=== PATIENT | female | born 1995 | race African-American/Black ===

== ENCOUNTER 2023-05-18 11:36 | Outpatient (CLI) | payer OTHER | END 2023-05-18 11:37 | disposition home or self-care (01) | LOC: CSHLAB 11:36 | PROVIDERS: ATTEND Family Medicine | DX: Z53.9 Procedure and treatment not carried out, unspecified reason (principal) | CPT/HCPCS: 85014; 85018; 85049; 86780; 86850; 86900; 86901; 87340 ==

== ENCOUNTER 2023-05-20 09:46 | Inpatient (IN) | payer OTHER ==
[2023-05-18 13:19] LABS: Hematocrit 30.8 % (34.9-44.5); Hemoglobin 8.5 g/dL (12.0-15.5); Platelet Count 177 10x3/uL (150-450)
[2023-05-18 13:36] LABS: HBSAg Index 0.19 S/CO (0-0.99); Hep B Surf Ag Non-Reactive S/CO (NonReactive)
[2023-05-18 13:38] LABS: Syphilis Antibody Nonreactive (Nonreactive); Syphilis Antibody Index 0.06 S/CO (<1.00 Non-Reactive)
[2023-05-20] MEDS ORDERED: Famotidine/PF 20 mg/2ml Vial SLOW IVP PRN (10:28)
[2023-05-20] MEDS ORDERED: Tranexamic Acid 1,000 MG/10 ML VIAL IVP PRN (10:28)
[2023-05-20] MEDS ORDERED: Misoprostol 200 MCG TAB PR PRN (10:28)
[2023-05-20] MEDS ORDERED: Bicitra 30 ML UDCUP PO PRN (10:28)
[2023-05-20] MEDS ORDERED: Promethazine HCl 25 MG/ML VIAL IM PRN ×3 (10:28→14:47)
[2023-05-20] MEDS ORDERED: Methylergonovine 0.2 MG/ML VIAL IM PRN (10:28)
[2023-05-20] MEDS ORDERED: Carboprost 250 MCG/ML AMP IM PRN (10:28)
[2023-05-20] MEDS ORDERED: Diphenoxylate HCl/Atropine Tablet PO PRN (10:28)
[2023-05-20] MEDS ORDERED: Ondansetron PF 4 MG/2 ML Vial IVP PRN ×4 (10:28→14:47)
[2023-05-20] MEDS ORDERED: hydrALAZINE 20 MG/ML VIAL SLOW IVP PRN ×2 (10:28→14:47)
[2023-05-20] MEDS ORDERED: Azithromycin 500 MG in Sodium Chloride 0.9% 250 ML 250 ML IVPB SCH (10:30)
[2023-05-20] MEDS ORDERED: Oxytocin 30 units/NS 500 ML 500 ML IV SCH (10:30)
[2023-05-20] MEDS ORDERED: Lactated Ringer's 1,000 ML IV SCH (10:30)
[2023-05-20 10:32] VITALS: BMI 39.4
[2023-05-20] MEDS ORDERED: Lidocaine 1% (PF) 30 ML VIAL ONE (10:51)
[2023-05-20] MEDS ORDERED: diphenhydrAMINE 50 MG/ML VIAL IVP PRN (11:00)
[2023-05-20] MEDS ORDERED: Naloxone HCl 0.4 mg/ml Vial IV PRN (11:00)
[2023-05-20] MEDS ORDERED: Naloxone HCl 0.4 mg/ml Vial IVP PRN ×2 (11:00)
[2023-05-20] MEDS ORDERED: Ketorolac Tromethamine 30 MG/ML VIAL IVP SCH (11:00)
[2023-05-20] MEDS ORDERED: fentaNYL 50 mcg/mL 1 mL Vial SLOW IVP PRN (11:00)
[2023-05-20] MEDS ORDERED: Moisturizing Cream (Eucerin) 113 GM JAR TOP PRN (11:00)
[2023-05-20] MEDS ORDERED: Meperidine HCl/PF 25 MG/ML VIAL SLOW IVP PRN (11:00)
[2023-05-20] MEDS ORDERED: Ketorolac Tromethamine 30 MG/ML VIAL IVP PRN (11:00)
[2023-05-20] MEDS ORDERED: Communication Order-Pharmacy FS SCH (11:00)
[2023-05-20] MEDS ORDERED: Promethazine HCl 25 MG SUPP PR PRN (11:00)
[2023-05-20] MEDS ORDERED: Dexamethasone 4 mg/ml Vial ONE (11:03)
[2023-05-20] MEDS ORDERED: Phenylephrine 40 MG/NS 250 ML 250 ML ONE (11:03)
[2023-05-20] MEDS ORDERED: ePHEDrine Sulfate 50 MG/10 ML VIAL ONE (11:03)
[2023-05-20] MEDS ORDERED: Ketorolac Tromethamine 30 MG/ML VIAL ONE (11:03)
[2023-05-20] MEDS ORDERED: Ondansetron PF 4 MG/2 ML Vial ONE (11:03)
[2023-05-20] MEDS ORDERED: PHENYLEPHRINE-NS 100 MCG/ML 10 ML SYRINGE ONE (11:03)
[2023-05-20] MEDS ORDERED: Oxytocin 10 UNITS/ML VIAL ONE (11:03)
[2023-05-20] MEDS ORDERED: Glycopyrrolate 0.2 MG/ML 5 ML SYRINGE ONE (11:03)
[2023-05-20] MEDS ORDERED: Morphine PF 10 MG/10 ML VIAL ONE (11:10)
[2023-05-20] MEDS: CEFAZOLIN 2 GM in Sodium Chloride 0.9% 100 ML IVPB SCH ×2 (11:36→11:37)
[2023-05-20] MEDS ORDERED: HumaLOG 300 UNITS/3 ML VIAL SC PRN (14:47)
[2023-05-20] MEDS ORDERED: Glucagon 1 MG/ML KIT IM PRN (14:47)
[2023-05-20] MEDS ORDERED: Dextrose 5% in Water 1,000 ML IV PRN (14:47)
[2023-05-20] MEDS ORDERED: Bisacodyl 10 MG SUPP PR PRN (14:47)
[2023-05-20] MEDS ORDERED: Boostrix 0.5 ML (Tdap) VIAL (>/=7 yrs of age) IM ONE (14:47)
[2023-05-20] MEDS ORDERED: Dextrose 50% Abboject 50 ML SYRINGE SLOW IVP PRN (14:47)
[2023-05-20] MEDS ORDERED: diphenhydrAMINE 25 MG CAP PO PRN (14:47)
[2023-05-20] MEDS ORDERED: Lanolin Ointment 7 GM TUBE TOP PRN (14:47)
[2023-05-20] MEDS: Ketorolac Tromethamine 30 MG/ML VIAL IVP SCH ×2 (18:18→23:39)
[2023-05-20] MEDS ORDERED: Lantus 1000 UNITS/10 ML VIAL SC SCH (21:00)
[2023-05-20] MEDS: Ferrous Sulfate 325 MG TAB PO SCH (21:41)
[2023-05-20] MEDS: Docusate 100 MG CAP PO SCH (21:41)
[2023-05-21 06:02] LABS: Hemoglobin 6.2 g/dL (12.0-15.5); Mean Corpuscular HGB CONC 28.2 g/dL (32.0-36.0); Mean Corpuscular Hemoglobin 18.1 pg (27.0-33.0); Mean Corpuscular Volume 64.1 fl (81.6-98.3); Platelet Count 162 10x3/uL (150-450); RBC Distribution Width 19.3 % (11.5-14.5); Red Blood Cell (RBC) Count 3.43 10x6/uL (3.90-5.03); White Blood Cell (WBC) Count 15.4 10x3/uL (3.5-10.5)
[2023-05-21] MEDS: Ketorolac Tromethamine 30 MG/ML VIAL IVP SCH (06:22)
[2023-05-21] MEDS: Simethicone Chewable 80 MG TAB PO PRN ×3 (08:13→18:05)
[2023-05-21] MEDS: Prenatal Vitamin 1 TAB PO SCH (08:13)
[2023-05-21] MEDS: Docusate 100 MG CAP PO SCH ×2 (08:13→21:31)
[2023-05-21] MEDS: Ferrous Sulfate 325 MG TAB PO SCH ×2 (08:13→21:31)
[2023-05-21] MEDS: HumaLOG 300 UNITS/3 ML VIAL SC SCH ×3 (10:00→17:00)
[2023-05-21] MEDS: HYDROcodone/Acetaminophen 5/325 mg Tablet PO PRN ×2 (11:44→18:03)
[2023-05-21] MEDS: Ibuprofen 800 MG TAB PO SCH ×2 (14:35→21:31)
[2023-05-22] MEDS: Ibuprofen 800 MG TAB PO SCH ×2 (06:00→17:44)
[2023-05-22] MEDS: HYDROcodone/Acetaminophen 5/325 mg Tablet PO PRN ×3 (06:01→21:00)
[2023-05-22] MEDS: HumaLOG 300 UNITS/3 ML VIAL SC SCH ×3 (08:37→20:33)
[2023-05-22] MEDS: Ferrous Sulfate 325 MG TAB PO SCH ×2 (08:51→21:00)
[2023-05-22] MEDS: Docusate 100 MG CAP PO SCH ×2 (08:52→21:00)
[2023-05-22] MEDS: Prenatal Vitamin 1 TAB PO SCH (08:52)
[2023-05-22] MEDS: Lantus 1000 UNITS/10 ML VIAL SC SCH (13:18)
[2023-05-23] MEDS: HYDROcodone/Acetaminophen 5/325 mg Tablet PO PRN ×4 (01:19→23:30)
[2023-05-23] MEDS: Ibuprofen 800 MG TAB PO SCH ×3 (01:19→21:35)
[2023-05-23] MEDS: Ferrous Sulfate 325 MG TAB PO SCH ×2 (08:00→21:35)
[2023-05-23] MEDS: Prenatal Vitamin 1 TAB PO SCH (08:17)
[2023-05-23] MEDS: Docusate 100 MG CAP PO SCH ×2 (08:19→21:34)
[2023-05-23] MEDS: HumaLOG 300 UNITS/3 ML VIAL SC SCH ×3 (08:20→18:48)
[2023-05-23] MEDS: Lantus 1000 UNITS/10 ML VIAL SC SCH (10:42)
[2023-05-23] MEDS: Labetalol HCl 100 MG TAB PO SCH (21:35)
[2023-05-24] MEDS: Ibuprofen 800 MG TAB PO SCH ×2 (05:10→09:35)
[2023-05-24] MEDS: HYDROcodone/Acetaminophen 5/325 mg Tablet PO PRN (06:01)
[2023-05-24] MEDS: HumaLOG 300 UNITS/3 ML VIAL SC SCH (07:16)
[2023-05-24 07:51] VITALS: BP 125/96; TEMP 99.1
[2023-05-24] MEDS: Lantus 1000 UNITS/10 ML VIAL SC SCH (08:52)
[2023-05-24] MEDS: Ferrous Sulfate 325 MG TAB PO SCH (09:34)
[2023-05-24] MEDS: Prenatal Vitamin 1 TAB PO SCH (09:34)
[2023-05-24] MEDS: Labetalol HCl 100 MG TAB PO SCH (09:34)
[2023-05-24] MEDS: Docusate 100 MG CAP PO SCH (09:35)
== END 2023-05-24 11:10 | disposition home or self-care (01) | DRG 788 ==
LOC: CSHLD 09:46 → CSHPP 15:25
PROVIDERS: ADMIT Family Medicine; ATTEND Family Medicine
PROC: 10D00Z1 Extraction of Products of Conception, Low, Open Approach (ICD-10-PCS; principal; 2023-05-20)
PROC: 3E0P05Z Introduction of Adhesion Barrier into Female Reproductive, Open Approach (ICD-10-PCS; 2023-05-20)
DX: O36.63X0 Maternal care for excessive fetal growth, third trimester, not applicable or unspecified (principal); O99.824 Streptococcus B carrier state complicating childbirth; Z37.0 Single live birth; Z3A.37 37 weeks gestation of pregnancy; O24.92 Unspecified diabetes mellitus in childbirth; D64.9 Anemia, unspecified; O99.02 Anemia complicating childbirth
CPT/HCPCS: 36415; 36416; 51702; 85014; 85018; 85027; 85049; 86780; 86850; 86900; 86901; 87340; J0456; J1100; J1200; J1815; J1885; J2274; J2405; J2590; J3490; J7050; S0028

== ENCOUNTER 2024-09-03 09:16 | Emergency (ER) | payer OTHER ==
[2024-09-03] MEDS ORDERED: Piperacillin/Tazobactam 3.375 GM VIAL ONE (09:39)
[2024-09-03] MEDS ORDERED: Sodium Bicarb 50 MEQ/50 ML Abboject 8.4% SYRINGE ONE (09:49)
[2024-09-03 09:58] LABS: ALV-art Gradient -6.395 mmHg (0-20); Actual Bicarbonate (HCO3a) 2.5 mEq/L (22-28); Analyzer IN Cardio CS ER; Base Excess (BEa) -27.4 mEq/L (-2.0 to +3.0); CO2 Tension 11.3 mmHg (35.0-45.0); Calcium, Ionized (arterial) 1.37 mmol/L (1.12-1.30); Carboxyhemoglobin (COHb) 0.3 gm% (0.0-3.0); Hematocrit-ABG 34 % (36.0-47.0); Hemoglobin (Hb) 11.7 g/dL (12.0-16.0); Potassium - ABG Lab 5.84 mmol/L (3.70-5.30); Puncture Site Right Radial artery; pH, Arterial 6.969 (7.35-7.45)
[2024-09-03 10:02] LABS: #Basophils 0.03 10x3/uL (0.0-0.2); #Eosinophils 0.04 10x3/uL (0.0-0.5); #Monocytes 1.14 10x3/uL (0.0-1.1); #Neutrophils 11.71 10x3/uL (1.5-8.4); %Basophils 0.2 % (0.0-2.0); %Eosinophils 0.3 % (0.0-6.0); %Lymphocytes 5.8 % (18.0-47.0); %Monocytes 8.2 % (0.0-10.0); %Neutrophils 84.6 % (40.0-75.0); Hematocrit 48.6 % (34.9-44.5); Hemoglobin 12.7 g/dL (12.0-15.5); Mean Corpuscular HGB CONC 26.1 g/dL (32.0-36.0); Mean Corpuscular Hemoglobin 20.5 pg (27.0-33.0); Mean Corpuscular Volume 78.3 fL (81.6-98.3); Mean Platelet Volume 10.2 fL (7.4-10.4); Platelet Count 358 10x3/uL (150-450); RBC Distribution Width 17.1 % (11.5-14.5); Red Blood Cell (RBC) Count 6.21 10x6/uL (3.90-5.03); White Blood Cell (WBC) Count 13.85 10x3/uL (3.5-10.5)
[2024-09-03 10:09] LABS: BHCG - Serum Negative (NEGATIVE); Pregs Control Background? CLEAR/WHITE (CLR/WHITE); Pregs Control Bar Appear? YES (CONTROL BAR)
[2024-09-03 10:17] LABS: Critical Call Chem-Lactate NUR.MM15 @1017
[2024-09-03 10:19] LABS: ALT (SGPT) 28 U/L (8-55); AST (SGOT) 44 U/L (5-34); Alkaline Phosphatase 124 U/L (40-110); BUN (Urea Nitrogen) 30 mg/dL (7.0-18.7); Bilirubin, Total 0.2 mg/dL (0.2-1.2); Calc. Creatinine Clearance 0 mL/min (70-130); Calcium 10.2 mg/dL (7.8-10.44); Chloride 99 mmol/L (98-107); Estimated GFR 31; Globulin 5.2 g/dL (2.4-3.5); Lipase 14 U/L (8-78); Protein, Total 9.2 g/dL (6.0-8.3); Sodium 132 mmol/L (136-145)
[2024-09-03 10:25] LABS: Troponin I Less than 0.010 ng/mL (< 0.028)
[2024-09-03 10:33] LABS: Carbon Dioxide Less than 8 mmol/L (22-29); Critical Call Chemistry ERS.KW @1033; Glucose 692 mg/dL (70-105); Potassium 6.8 mmol/L (3.5-5.1)
[2024-09-03] MEDS ORDERED: INSULIN REGULAR IN 0.9 % NACL 100 ML ONE (10:34)
[2024-09-03] MEDS ORDERED: Iopamidol 370 76% 100 ML VIAL ONE (10:50)
[2024-09-03 10:58] LABS: Bilirubin Neg (Negative); Blood, Urine 25 (Negative); Clarity Clear (Clear); Glucose, Urine (Dipstick) >=1000 mg/dL (Negative); Ketone, Urine 150 mg/dL (Negative); Leukocyte Negative (Negative); Nitrite Negative (Negative); Protein, Urine (Dipstick) 30 mg/dl (Neg-Trace); Urobilinogen Normal mg/dL (Less than 2)
[2024-09-03] MEDS ORDERED: Sodium Bicarbonate 150 mEq in Dextrose 5% IV SCH (11:00)
[2024-09-03] MEDS ORDERED: VANCOMYCIN 1.75 GM/350 ML BAG 1.75 GM in Premix 1 BAG IVPB SCH (11:15)
[2024-09-03 11:30] LABS: Bacteria/HPF Rare-Few HPF (None Seen); CAUTI Indications for Culture Pelvic or flank pain; Squamous Epithelial 0-3 HPF (0-3); WBC/HPF None Seen HPF (0-3)
[2024-09-03 11:31] LABS: Yeast-Budding 1+ HPF (None Seen)
[2024-09-03 11:32] LABS: Urine Culture Reflex No No
[2024-09-03] MEDS ORDERED: Oseltamivir 75 MG CAP PO SCH (12:30)
== END 2024-09-03 12:41 | disposition short-term general hospital (02) ==
LOC: CSHERS 09:16
DX: N17.9 Acute kidney failure, unspecified (principal); J10.1 Influenza due to other identified influenza virus with other respiratory manifestations; E10.10 Type 1 diabetes mellitus with ketoacidosis without coma; Z79.4 Long term (current) use of insulin
CPT/HCPCS: 36415; 36416; 36600; 71045; 71275; 80053; 81001; 82010; 82805; 83605; 83690; 83735; 83880; 84443; 84484; 84703; 85025; 87040; 87077; 87086; 87149; 87428; 93005; 96361; 96374; 96375; J1815; J2543; J3370; J7070; Q9967